=== PATIENT | male | born 1955 | race Hispanic/Latino ===

== ENCOUNTER → 2024-09-24 | Outpatient (CLI) | payer OTHER ==
[2024-09-24 22:28] VITALS: PULSE 94; RESP 18
[2024-09-24 23:00] VITALS: PULSE 94; RESP 16
[2024-09-24 23:30] VITALS: PULSE 90; RESP 20
[2024-09-25] VITALS (10 sets, daily range): PULSE 74–96; RESP 14–22
--- NOTE | 2024-09-25 01:32 | NUR ---
TAMSULIN,EMAGLIFLOZIN 25MG,ROSUVASTATIN 10MG,SENTRALINE 100MG,LEVOTHYROXINE 25MG,ALBUTEROL INHALER,GUALFENSIN Addendum: 09/25/24 at 0135 by SONALI BECERRA Amended: Links added.
== END | disposition home or self-care (01) ==
LOC: SLP 20:28
PROVIDERS: ATTEND Internal Medicine Critical Care Medicine
DX: G47.33 Obstructive sleep apnea (adult) (pediatric) (principal); R06.83 Snoring; J44.9 Chronic obstructive pulmonary disease, unspecified; I35.0 Nonrheumatic aortic (valve) stenosis; I25.10 Atherosclerotic heart disease of native coronary artery without angina pectoris
CPT/HCPCS: 95810